=== PATIENT | male | born 1990 | race Two or more races ===

== ENCOUNTER → 2024-08-21 | Outpatient (REF) | LOC: M PLAIMG 08:44 | PROVIDERS: ATTEND Internal Medicine | DX: R52 Pain, unspecified (principal) ==

== ENCOUNTER → 2024-11-21 | Outpatient (CLI) | payer OTHER | LOC: M RAD 14:16 | DX: M25.561 Pain in right knee (principal); M25.562 Pain in left knee ==

== ENCOUNTER → 2025-01-10 | Outpatient (REF) | LOC: M PLAIMG 13:56 | PROVIDERS: ATTEND Internal Medicine | DX: M54.50 Low back pain, unspecified (principal) ==